=== PATIENT | male | born 1985 | race Caucasian/White ===

== ENCOUNTER 2019-09-05 02:50 | Emergency (ER) | payer SELFPAY ==
[2019-09-05] MEDS ORDERED: NORMAL SALINE 1000 ML 1,000 ML IV ONE (06:28)
[2019-09-05] MEDS ORDERED: MORPHINE SULFATE 10 MG/ML INJ IV ONE (06:28)
[2019-09-05] MEDS ORDERED: ONDANSETRON HCL INJ/PF 4 MG/2 ML SDV IV ONE (06:29)
[2019-09-05 07:03] LABS: ABSOLUTE BASOPHILS # (AUTO) 0.1 10^3/uL (0.0-0.2); ABSOLUTE EOSINOPHILS # (AUTO) 0.2 10^3/uL (0.0-0.6); ABSOLUTE LYMPHOCYTES (AUTO) 3.2 10^3/uL (0.5-4.7); ABSOLUTE MONOCYTES (AUTO) 0.7 10^3/uL (0.1-1.4); ABSOLUTE NEUT (AUTO) 5.2 10^3/uL (1.7-8.2); EOSINOPHILS % (AUTO) 1.8 % (0-6); HEMATOCRIT 43.2 % (37.9-51.0); LYMPHOCYTES % (AUTO) 34.3 % (13-45); MEAN CORPUSCULAR HEMOGLOBIN 30.7 pg (27.0-33.4); MEAN CORPUSCULAR HGB CONC 34.8 g/dL (32.0-36.0); MEAN CORPUSCULAR VOLUME 88 fl (80-97); MONOCYTES % (AUTO) 7.6 % (3-13); PLATELET COUNT 243 10^3/uL (150-450); RED BLOOD COUNT 4.89 10^6/uL (4.35-5.55); RED CELL DISTRIBUTION WIDTH 13.1 % (11.5-14.0); SEGMENTED NEUTROPHILS % (AUTO) 55.3 % (42-78); TOTAL CELLS COUNTED % (AUTO) 100 %; WHITE BLOOD COUNT 9.4 10^3/uL (4.0-10.5)
[2019-09-05 07:20] LABS: ALBUMIN 4.1 g/dL (3.5-5.0); ALKALINE PHOSPHATASE 56 U/L (38-126); ANION GAP 6 (5-19); ASPARTATE AMINO TRANSFERASE 22 U/L (17-59); BILIRUBIN,TOTAL 0.8 mg/dL (0.2-1.3); BLOOD UREA NITROGEN 24 mg/dL (7-20); CALCIUM 9.8 mg/dL (8.4-10.2); CARBON DIOXIDE 24 mmol/L (22-30); CHLORIDE 106 mmol/L (98-107); GLUCOSE 99 mg/dL (75-110); POTASSIUM 4.2 mmol/L (3.6-5.0); TOTAL PROTEIN 6.5 g/dL (6.3-8.2)
--- NOTE | 2019-09-05 08:19 | RADIOLOGY REPORT (SQ) ---
EXAM DESCRIPTION: CT LUMBAR SPINE WITHOUT IMAGES COMPLETED DATE/TIME: 09/05/2019 7:48 am REASON FOR STUDY: low back pain/right radicular pain COMPARISON: None. TECHNIQUE: Axial images acquired through the lumbar spine without intravenous contrast. Images revi ewed with lung, soft tissue and bone windows. Reconstructed coronal and sagittal MPR images reviewed . All images stored on PACS. All CT scanners at this facility use dose modulation, iterative reconstruction, and/or weight based d osing when appropriate to reduce radiation dose to as low as reasonably achievable (ALARA). [facility]: Dose Right [facility]: CareDose [facility]: Dose Right [facility]: Teradose 4D [facility]: [employer] RADIATION DOSE: mGy. LIMITATIONS: None. FINDINGS: SEGMENTATION: Normal. No transitional anatomy. ALIGNMENT: There is grade 1 anterolisthesis at the lumbosacral junction on the basis of bilateral L5 pars interarticularis defects. VERTEBRAL BODIES: No fractures. No dislocation. No acute findings. DISCS: Lumbosacral junction anterolisthesis results in disc uncovering with a circumferential disc bu lge and vacuum disc phenomenon ; this results in severe bilateral neural foraminal narrowing. The ce ntral canal remains patent. Additionally, there is a broad-based posterior disc bulge at the L4/5 le hawk which results in moderate bilateral neural foraminal narrowing. The central canal remains patent . PEDICLES, TRANSVERSE PROCESSES: As above. FACETS, POSTERIOR ELEMENTS: As above. HARDWARE: None in the spine. VISUALIZED RIBS: No fractures. SOFT TISSUES: No significant or acute finding in adjacent soft tissues. OTHER: No other significant finding. IMPRESSION: Grade 1 anterolisthesis of L5 relative to S1 on the basis of bilateral L5 pars interarti cularis defects. This results in severe bilateral neural foraminal stenosis at this level. Addition al spondylotic changes as above. TECHNICAL DOCUMENTATION: JOB ID: [id number] Quality ID # [id number]: Final reports with documentation of one or more dose reduction techniques (e.g., Au tomated exposure control, adjustment of the mA and/or kV according to patient size, use of iterative reconstruction technique) 2010 [employer]- All Rights Reserved Reading location - IP/workstation name: [email or web address]
[2019-09-05 08:36] LABS: AMORPHOUS SEDIMENT,URINE TRACE /HPF; APPEARANCE,URINE SLIGHTLY-CLOUDY; BILIRUBIN,URINE NEGATIVE (NEGATIVE); COLOR,URINE YELLOW; GLUCOSE, URINE NEGATIVE (NEGATIVE); KETONES,URINE NEGATIVE (NEGATIVE); LEUKOCYTE ESTERASE,URINE NEGATIVE (NEGATIVE); NITRITE,URINE NEGATIVE (NEGATIVE); PROTEIN,URINE NEGATIVE (NEGATIVE); URINE SPECIFIC GRAVITY 1.021; UROBILINOGEN,URINE NEGATIVE mg/dL (<2.0)
[2019-09-05] MEDS ORDERED: KETOROLAC TROMETHAMINE INJ/PF 30 MG/1 ML SDV IV ONE (08:51)
[2019-09-05] MEDS ORDERED: METHYLPREDNISOLONE INJ 125 MG/2 ML SDV IV ONE (08:51)
[2019-09-05 08:59] LABS: URINE AMPHETAMINES SCREEN NEGATIVE; URINE BARBITURATES SCREEN NEGATIVE; URINE BENZODIAZEPINES SCREEN NEGATIVE; URINE COCAINE SCREEN NEGATIVE; URINE METHADONE SCREEN NEGATIVE; URINE PHENCYCLIDINE SCREEN NEGATIVE
[2019-09-05 09:00] LABS: URINE MARIJUANA (THC) SCREEN UNCONFIRMED POSITIVE
--- NOTE | 2019-09-05 09:12 | ER Document Report ---
Entered by KAYLYN CARO SCRIBE 09/05/19 0614 Acting as scribe for:SHUBHAM SARKAR MD ED Neck/Back Problem - General Chief Complaint: Back Pain Stated Complaint: BACK PAIN Primary Care Provider: SEDRICK WEATHERS MD [Primary Care Provider] - Follow up as needed Mode of Arrival: Ambulatory Information source: Patient Notes: This 33 year old male patient presents to the emergency department today with complaints of low back pain. Patient states that he "pulled his back and slipped some lumbar discs" about four years ago and intermittently has some lower back discomfort from this. Patient states he was seen by his PCP on 09/01 and was diagnosed with a right sided inguinal hernia and he thinks he has been "babying the right side" because of the hernia and now he has left lower back pain that radiates down his left. - Related Data Allergies/Adverse Reactions: No Known Allergies Allergy (Unverified 09/05/19 02:58) Past Medical History - General Information source: Patient - Social History Smoking Status: Current Some Day Smoker Cigarette use (# per day): Yes Frequency of alcohol use: None Drug Abuse: Marijuana Lives with: Family Family History: Reviewed & Not Pertinent Patient has homicidal ideation: No - Medical History Medical History: Negative Surgical Hx: Negative Review of Systems - Review of Systems Constitutional: No symptoms reported EENT: No symptoms reported Cardiovascular: No symptoms reported Respiratory: No symptoms reported Gastrointestinal: No symptoms reported Genitourinary: No symptoms reported Male Genitourinary: No symptoms reported Musculoskeletal: See HPI, Back pain Skin: No symptoms reported Hematologic/Lymphatic: No symptoms reported Neurological/Psychological: No symptoms reported -: Yes All other systems reviewed and negative Physical Exam - Vital signs Vitals: Temp Pulse Resp BP Pulse Ox 98.5 F 90 18 141/83 H 98 09/05/19 02:55 09/05/19 02:55 09/05/19 02:55 09/05/19 02:55 09/05/19 02:55 - Notes Notes: Physical Exam: General: Alert, appears well. HEENT: Normocephalic. Atraumatic. PERRL. Extraocular movements intact. Oropharynx clear. Neck: Supple. Non-tender. Respiratory: No respiratory distress. Clear and equal breath sounds bilaterally. Cardiovascular: Regular rate and rhythm. Abdominal: Normal Inspection. Non-tender. No distension. Normal Bowel Sounds. Back: No gross abnormalities. Extremities: Moves all four extremities. Upper extremities: Normal inspection. Normal ROM. Lower extremities: Straight leg raise on the right causes minimal pain to the left lower back. Straight leg raise on the left causes moderate left lower back pain that radiates down his posterior left leg. Neurological: Normal cognition. AAOx4. Normal speech. Psychological: Normal affect. Normal Mood. Skin: Warm. Dry. Normal color. Course - Re-evaluation Re-evalutation: 09/05/19 08:53 Patient resting comfortably states pain has improved in his lower back with radiation down the left leg. Discussed with patient that he had L5-S1 anterior listhesis which is slipped disc or occurring at the L5-S1 junction. He also has bilateral foraminal stenosis. No fracture seen. Discussed with patient he is in require follow-up with orthopedic physician. Also explained the patient he is not to do any heavy lifting pushing or pulling and to be careful with his movements including getting in and out of a chair or the vehicles. - Vital Signs Vital signs: Temp Pulse Resp BP Pulse Ox 98.5 F 90 18 141/83 H 98 09/05/19 02:55 09/05/19 02:55 09/05/19 02:55 09/05/19 02:55 09/05/19 02:55 09/05/19 08:55 Vital signs stable - Laboratory Result Diagrams: 09/05/19 06:45 09/05/19 06:45 Laboratory results interpreted by me: 09/05/19 06:45 Sodium 136.4 L BUN 24 H Labs essentially within normal limits except a BUN of 24, slightly dehydrated. - Diagnostic Test Radiology reviewed: Image reviewed, Reports reviewed Radiology results interpreted by me: 09/05/19 08:56 Grade 1 anterior listhesis of L5-S1 with foraminal stenosis bilateral. No fracture seen. Discharge - Discharge Clinical Impression: Sciatica associated with disorder of lumbosacral spine Condition: Stable Disposition: HOME, SELF-CARE Instructions: Oral Narcotic Medication ([facility]), Pain Medication Injection ([facility]), Low Back Pain ([facility]) Additional Instructions: SciaticaSciatica Your symptoms suggest "sciatica." The pain of sciatica typically radiates down the leg. Numbness in the foot or calf may also occur. Sciatica is caused by irritation of the sciatic nerve or its branches. The irritation can be due to a herniated disk in the spine, swelling and inflammation in the muscles surrounding the sciatic nerve, or direct injury of the nerve itself. Most cases of sciatica will resolve with medical treatment. Bed rest is usually recommended initially. Surgery is only necessary when the condition will not improve with rest and antiinflammatory medication. Muscle relaxers are often given if muscle soreness is present. A CAT scan of the back may be performed if a herniated disk is suspected. Re-examination is necessary if you develop increasing numbness, localized weakness in the foot or ankle, or if the pain does not respond to rest. Prescriptions: Baclofen [Baclofen 10 mg Tablet] 10 mg PO QHS PRN #10 tablet PRN Reason: prn muscle spasm Ondansetron [Zofran Odt 4 mg Tablet] 1 - 2 tab PO Q4HP PRN #10 tab.rapdis PRN Reason: Methylprednisolone [Medrol Dosepack (4 mg/Tab) 21 Tab/Dosepak] 4 mg PO ASDIR PRN #21 tab.ds.pk PRN Reason: Ibuprofen [Motrin 800 mg Tablet] 800 mg PO Q8H PRN #21 tablet PRN Reason: pain Hydrocodone/Acetaminophen [Kent 5-325 mg Tablet] 1 tab PO QID PRN #16 tablet PRN Reason: severe pain Referrals: SEDRICK WEATHERS MD [Primary Care Provider] - Follow up as needed ANNIKA DOWD DO [ACTIVE STAFF] - Follow up in 3-5 days I personally performed the services described in the documentation, reviewed and edited the documentation which was dictated to the scribe in my presence, and it accurately records my words and actions.
[2019-09-05 10:16] VITALS: BP 108/73
== END 2019-09-05 10:15 | disposition home or self-care (01) ==
LOC: ER 02:50
DX: M51.17 Intervertebral disc disorders with radiculopathy, lumbosacral region (principal); M47.26 Other spondylosis with radiculopathy, lumbar region; M48.07 Spinal stenosis, lumbosacral region; K40.90 Unilateral inguinal hernia, without obstruction or gangrene, not specified as recurrent; F17.210 Nicotine dependence, cigarettes, uncomplicated; F12.10 Cannabis abuse, uncomplicated; E86.0 Dehydration
CPT/HCPCS: 99284; 96361; 96374; 96375; 36415; 85025; 80053; 81001; 80307; 72131; J2930; J1885; J2270; J2405; J7030